=== PATIENT | male | born 1990 | race Caucasian/White ===

== ENCOUNTER 2017-04-08 23:49 | Emergency (ER) | payer MEDICAID ==
[~2017-04-08] VITALS: Ht 157.5 cm; Wt 68.0 kg
[2017-04-09 00:04] VITALS: BP_SYST 139
[2017-04-09] MEDS ORDERED: IBUPROFEN 600 MG TABLET PO ONE (01:30)
[2017-04-09 03:05] VITALS: BP_SYST 135
== END 2017-04-09 03:05 | disposition home or self-care (01) ==
LOC: SED 23:49
DX: M25.571 Pain in right ankle and joints of right foot (principal); M54.5 Low back pain; V89.2XXA Person injured in unspecified motor-vehicle accident, traffic, initial encounter; Y93.89 Activity, other specified; Y92.488 Other paved roadways as the place of occurrence of the external cause; Y99.8 Other external cause status
CPT/HCPCS: 72100-TC; 99284